=== PATIENT | male | born 1990 | race Caucasian/White ===

== ENCOUNTER 2024-03-20 17:58 | Emergency (ER) | payer MEDICAID ==
[2024-03-20] MEDS: Amoxicillin 500 MG Cap PO ONE (19:02)
[2024-03-20] MEDS: Acetaminophen 500 MG Tab PO ONE (19:03)
== END 2024-03-20 19:14 | disposition home or self-care (01) ==
LOC: DL.ED 17:58
DX: K02.9 Dental caries, unspecified (principal); F17.210 Nicotine dependence, cigarettes, uncomplicated; E66.9 Obesity, unspecified; Z79.899 Other long term (current) drug therapy; Z68.43 Body mass index [BMI] 50.0-59.9, adult
CPT/HCPCS: 99282; A9270-GY